=== PATIENT | female | born 1975 | race African-American/Black ===

== ENCOUNTER 2025-02-27 17:07 | Emergency (ER) | payer MEDICAID ==
[~2025-02-27] VITALS: Ht 170.2 cm; Wt 73.0 kg
[2025-02-27 17:14] VITALS: TEMP 37; O2SAT 99
[2025-02-27] MEDS ORDERED: CLIN-194 MT (20:27)
[2025-02-27] MEDS ORDERED: TOPUD PO (20:27)
[2025-02-27] MEDS ORDERED: IBUP-2029 MT (20:27)
[2025-02-27 20:52] VITALS: BP 142/93; PULSE 109; RESP 18; TEMP 98.6
[2025-02-27] MEDS: ACETAMINOPHEN 325MG TABLET PO STA (20:52)
[2025-02-27] MEDS: IBUPROFEN 600MG TABLET PO STA (20:52)
== END 2025-02-27 22:21 | disposition home or self-care (01) ==
LOC: ER 17:07
DX: H60.02 Abscess of left external ear (principal); N76.4 Abscess of vulva; J45.909 Unspecified asthma, uncomplicated; Z79.899 Other long term (current) drug therapy; Z98.890 Other specified postprocedural states
CPT/HCPCS: 99284